=== PATIENT | female | born 1950 | race African-American/Black ===

== ENCOUNTER 2017-04-05 12:10 | Inpatient (IN) | payer OTHER, MEDICAID ==
[~2017-04-05] VITALS: Ht 154.9 cm; Wt 68.0 kg
[~2017-04-05 12:10] MED LIST: FLUT1DIS3 IH; GABA-531 PO; LANTUS; MELO-104 PO; METF10002 PO; MONT10TA24 PO; OMEP40CA34 PO; OXYB5TAB11 PO; PRAV40TA58 PO; PROAIR; RANI300C8 PO; SULF-165 PO; VIC PO
[2017-04-05 13:15] LABS: BASOPHILS % 0.8 % (0.0-2.0); EOSINOPHILS % 0.7 % (0.0-5.0); HEMATOCRIT. 33.1 % (36.0-48.0); HEMOGLOBIN. 11.8 g/dL (12.0-16.0); LYMPHOCYTES % 31.9 % (20.0-50.0); MEAN CORPUSCULAR VOLUME 87.3 fL (81.0-99.0); MEAN PLATELET VOLUME 7.4 fl (7.4-10.4); MONOCYTES % 6.7 % (2.0-8.0); NEUTROPHILS % 59.9 % (40.0-76.0); PLATELET 383 x1000/uL (130-400); RED BLOOD CELL COUNT 3.79 mill/uL (4.2-5.4); RED CELL DISTRIBUTION WIDTH 14.6 % (11.6-14.6)
[2017-04-05 13:20] LABS: INR 0.9; PROTHROMBIN TIME 9.8 sec (9.4-11.6)
[2017-04-05 13:21] LABS: CARBON DIOXIDE 26 mEq/L (21-32); CHLORIDE 109 mEq/L (98-107)
[2017-04-05 13:29] LABS: TROPONIN I < 0.02 ng/mL (0.00-0.04)
[2017-04-05] MEDS ORDERED: ASPIRIN 325MG EC TABLET PO ONE (14:15)
[2017-04-05] MEDS ORDERED: IPRATROPIUM/ALBUTEROL 0.5-3(2.5)MG/3ML NEB INH PRN (15:00)
[2017-04-05] MEDS ORDERED: DIPHENHYDRAMINE 50MG/ML VIAL IV PRN (15:00)
[2017-04-05] MEDS ORDERED: ACETAMINOPHEN 325MG TABLET PO PRN (15:00)
[2017-04-05] MEDS ORDERED: DEXTROSE 50% WATER 50ML SYRINGE IV PRN (15:00)
[2017-04-05] MEDS ORDERED: ONDANSETRON HCL 4MG/2ML VIAL IV PRN (15:00)
[2017-04-05 17:00] VITALS: BP 170/63
[2017-04-05] MEDS: INSULIN LISPRO 100 UNITS/ML SUBCUT SCH ×2 (17:40→22:02)
[2017-04-05] MEDS: BLOOD SUGAR DIAGNOSTIC STRIP TEST SCH ×2 (18:06→21:00)
[2017-04-05 18:07] VITALS: BP 170/63
[2017-04-05] MEDS ORDERED: [UNRECOGNIZED DRUG - OTHER] (18:57)
[2017-04-05] MEDS ORDERED: LOSARTAN (18:57)
[2017-04-05] MEDS ORDERED: LIP40 PO (18:58)
[2017-04-05] MEDS ORDERED: SPIR25TA4 PO (18:59)
[2017-04-05] MEDS ORDERED: DILT240C92 PO (19:00)
[2017-04-05] MEDS ORDERED: OXYB5TAB11 PO (19:01)
[2017-04-05] MEDS: CLONIDINE 0.1MG TABLET PO PRN (19:32)
[2017-04-05] MEDS: HYDROCODONE/ACETAMINOPHEN 5/325MG TABLET PO PRN (19:52)
[2017-04-05 20:00] VITALS: BP 155/74
[2017-04-06] VITALS (7 sets, daily range): BP systolic 133–169; BP diastolic 53–66
[2017-04-06] MEDS: INSULIN LISPRO 100 UNITS/ML SUBCUT SCH ×4 (06:36→21:00)
[2017-04-06] MEDS: BLOOD SUGAR DIAGNOSTIC STRIP TEST SCH ×4 (06:36→20:25)
[2017-04-06 06:56] LABS: BASOPHILS % 0.6 % (0.0-2.0); EOSINOPHILS % 1.1 % (0.0-5.0); HEMATOCRIT. 31.8 % (36.0-48.0); LYMPHOCYTES % 41.7 % (20.0-50.0); MEAN CORPUSCULAR HEMOGLOBIN 31.4 pg (28.0-32.0); MEAN CORPUSCULAR VOLUME 91.3 fL (81.0-99.0); MEAN PLATELET VOLUME 8.1 fl (7.4-10.4); MONOCYTES % 6.7 % (2.0-8.0); NEUTROPHILS % 49.9 % (40.0-76.0); PLATELET 342 x1000/uL (130-400); RED BLOOD CELL COUNT 3.49 mill/uL (4.2-5.4); RED CELL DISTRIBUTION WIDTH 15.1 % (11.6-14.6)
[2017-04-06 08:09] LABS: CARBON DIOXIDE 22 mEq/L (21-32); CHLORIDE 110 mEq/L (98-107); HDL CHOLESTEROL 55 mg/dL (40-59); LDL CHOLESTEROL 117 mg/dL (5-100); TROPONIN I < 0.02 ng/mL (0.00-0.04)
[2017-04-06] MEDS: HYDROCODONE/ACETAMINOPHEN 5/325MG TABLET PO PRN ×2 (09:45→20:56)
[2017-04-06 10:47] LABS: T4 FREE 0.88 ng/dL (0.76-1.46)
[2017-04-06] MEDS: CLOPIDOGREL 75MG TABLET PO SCH (11:00)
[2017-04-06 11:20] LABS: FOLIC ACID (FOLATE) SERUM 19.2 ng/mL (>5.38)
[2017-04-06 18:08] LABS: CLARITY URINE CLEAR (CLEAR); COLOR URINE YELLOW (YELLOW); GLUCOSE URINE TRACE (NEGATIVE); KETONES URINE NEGATIVE (NEGATIVE); LEUKOCYTE ESTERASE URINE NEGATIVE (NEGATIVE); NITRITE URINE NEGATIVE (NEGATIVE); OCCULT BLOOD URINE NEGATIVE (NEGATIVE); PH URINE 6.5 (4.5-8.0); PROTEIN URINE 2+ (NEGATIVE); SPECIFIC GRAVITY URINE 1.009 (1.005-1.030)
[2017-04-06 18:22] LABS: *AMPHETAMINES SCREEN URINE NEGATIVE (NEGATIVE); *BARBITURATES SCREEN URINE NEGATIVE (NEGATIVE); *BENZODIAZEPINES SCREEN URINE NEGATIVE (NEGATIVE); *COCAINE SCREEN URINE NEGATIVE (NEGATIVE); CANNABINOID URINE SCREEN NEGATIVE (NEGATIVE); METHADONE URINE SCREEN NEGATIVE (NEGATIVE); OPIATES URINE SCREEN PRESUMTIVE POSITIVE (NEGATIVE); PHENCYCLIDINE URINE SCREEN NEGATIVE (NEGATIVE)
[2017-04-06] MEDS ORDERED: LORAZEPAM 0.5MG TABLET PO NR (19:30)
[2017-04-06] MEDS: CLONIDINE 0.1MG TABLET PO PRN (20:56)
[2017-04-07 04:00] VITALS: BP 139/66
[2017-04-07] MEDS: BLOOD SUGAR DIAGNOSTIC STRIP TEST SCH ×2 (06:11→11:21)
[2017-04-07] MEDS: INSULIN LISPRO 100 UNITS/ML SUBCUT SCH ×2 (06:48→11:49)
[2017-04-07 07:01] LABS: BASOPHILS % 0.8 % (0.0-2.0); EOSINOPHILS % 1.2 % (0.0-5.0); HEMATOCRIT. 31.8 % (36.0-48.0); LYMPHOCYTES % 43.5 % (20.0-50.0); MEAN CORPUSCULAR HEMOGLOBIN 30.7 pg (28.0-32.0); MEAN CORPUSCULAR VOLUME 88.4 fL (81.0-99.0); MEAN PLATELET VOLUME 8.2 fl (7.4-10.4); MONOCYTES % 7.5 % (2.0-8.0); PLATELET 327 x1000/uL (130-400); RED CELL DISTRIBUTION WIDTH 14.5 % (11.6-14.6)
[2017-04-07 07:40] LABS: CARBON DIOXIDE 23 mEq/L (21-32); CHLORIDE 109 mEq/L (98-107)
[2017-04-07 08:00] VITALS: BP 154/84
[2017-04-07] MEDS: CLOPIDOGREL 75MG TABLET PO SCH (08:18)
[2017-04-07 12:00] VITALS: BP 107/53
[2017-04-07] MEDS ORDERED: NIFEDIPINE XL 30MG TAB PO SCH (12:04)
[2017-04-07] MEDS ORDERED: BUDESONIDE 0.5MG/2ML NEB HHN SCH (16:30)
== END 2017-04-07 15:40 | disposition left against medical advice (07) | DRG 65 ==
LOC: ER 13:25 → 8WST 14:40 → EDBEDREQTM 14:46 → EDBEDREQ 14:46 → ENRESERV 15:34
PROVIDERS: ADMIT Internal Medicine; ATTEND Internal Medicine
DX: I63.9 Cerebral infarction, unspecified (principal); G81.94 Hemiplegia, unspecified affecting left nondominant side; E11.42 Type 2 diabetes mellitus with diabetic polyneuropathy; I11.9 Hypertensive heart disease without heart failure; I10 Essential (primary) hypertension; I27.2 Other secondary pulmonary hypertension; R47.81 Slurred speech; E78.00 Pure hypercholesterolemia, unspecified; M79.7 Fibromyalgia; J44.9 Chronic obstructive pulmonary disease, unspecified; R29.810 Facial weakness; F41.9 Anxiety disorder, unspecified; E78.5 Hyperlipidemia, unspecified; Z53.21 Procedure and treatment not carried out due to patient leaving prior to being seen by health care provider; F17.210 Nicotine dependence, cigarettes, uncomplicated; Z90.710 Acquired absence of both cervix and uterus; Z88.1 Allergy status to other antibiotic agents; Z88.6 Allergy status to analgesic agent; Z79.84 Long term (current) use of oral hypoglycemic drugs; Z79.4 Long term (current) use of insulin; Z79.899 Other long term (current) drug therapy; I51.7 Cardiomegaly; E11.65 Type 2 diabetes mellitus with hyperglycemia; D64.9 Anemia, unspecified
CPT/HCPCS: 36415; 70450; 70544; 70553; 71010; 80048; 80053; 80061; 80305; 81001; 82607; 82746; 82962; 83036; 83880; 84439; 84443; 84481; 84484; 85025; 85610; 87040; 87086; 92523; 92610; 93005; 93306; 93880; 94664; 97162; 97166; 99285; G0482; J1815; J7620

== ENCOUNTER 2017-06-05 15:21 | Emergency (ER) | payer OTHER ==
[~2017-06-05] VITALS: Ht 154.9 cm; Wt 68.0 kg
[~2017-06-05 15:21] MED LIST changes: +DILT240C92 PO; +LIP40 PO; +LOSARTAN; +SPIR25TA4 PO; +[UNRECOGNIZED DRUG - OTHER]
[2017-06-05 15:37] VITALS: BP 106/61
== END 2017-06-05 18:01 | disposition home or self-care (01) ==
LOC: ER 15:52
DX: S82.852A Displaced trimalleolar fracture of left lower leg, initial encounter for closed fracture (principal); E78.00 Pure hypercholesterolemia, unspecified; E11.9 Type 2 diabetes mellitus without complications; Z88.0 Allergy status to penicillin; Z88.5 Allergy status to narcotic agent; Z79.4 Long term (current) use of insulin; W06.XXXA Fall from bed, initial encounter; Y93.89 Activity, other specified; Y92.89 Other specified places as the place of occurrence of the external cause; Y99.8 Other external cause status
CPT/HCPCS: 29505; 73610; 99284

== ENCOUNTER 2019-06-30 00:37 | Emergency (ER) | payer MEDICARE, MEDICAID ==
[~2019-06-30] VITALS: Ht 154.9 cm; Wt 68.0 kg
[~2019-06-30 00:37] MED LIST changes: -FLUT1DIS3 IH; +METF-416 PO; -METF10002 PO; -SPIR25TA4 PO; +SPIR25TA6 PO; -VIC PO
[2019-06-30] MEDS ORDERED: DEXT 10% WATER 1,000 ML IV ONE (02:53)
[2019-06-30 03:36] LABS: BASOPHILS % 0.4 % (0.0-2.0); EOSINOPHILS % 0.1 % (0.0-5.0); HEMOGLOBIN. 12.9 g/dL (12.0-16.0); LYMPHOCYTES % 14.8 % (20.0-50.0); MEAN CORPUSCULAR HEMOGLOBIN 31.4 pg (28.0-32.0); MEAN CORPUSCULAR VOLUME 91.9 fL (81.0-99.0); MEAN PLATELET VOLUME 7.9 fl (7.4-10.4); MONOCYTES % 5.9 % (2.0-8.0); NEUTROPHILS % 78.8 % (40.0-76.0); PLATELET 368 x1000/uL (130-400); RED BLOOD CELL COUNT 4.13 mill/uL (4.2-5.4); RED CELL DISTRIBUTION WIDTH 16.4 % (11.6-14.6)
[2019-06-30 04:04] LABS: CHLORIDE 110 mEq/L (98-107)
[2019-06-30] MEDS ORDERED: ACETAMINOPHEN 325MG TABLET PO PRN (07:15)
[2019-06-30] MEDS ORDERED: ONDANSETRON HCL 4MG/2ML INJ IV PRN (07:15)
[2019-06-30] MEDS ORDERED: DIPHENHYDRAMINE 50MG/ML VIAL IV PRN (07:15)
[2019-06-30 07:37] LABS: PHOSPHORUS 3.3 mg/dL (2.5-4.9)
[2019-06-30] MEDS ORDERED: ENOXAPARIN 40MG/0.4ML SYR SUBCUT SCH (09:00)
[2019-06-30 11:28] VITALS: BP 117/67
== END 2019-06-30 12:23 | disposition left against medical advice (07) ==
LOC: ER 00:37 → EDBEDREQ 06:34 → EDBEDREQTM 06:34 → CANBEDREQ 12:01 → ER 12:23
DX: T38.3X1A Poisoning by insulin and oral hypoglycemic [antidiabetic] drugs, accidental (unintentional), initial encounter (principal); E11.649 Type 2 diabetes mellitus with hypoglycemia without coma; J44.9 Chronic obstructive pulmonary disease, unspecified; E78.00 Pure hypercholesterolemia, unspecified; I10 Essential (primary) hypertension; F17.210 Nicotine dependence, cigarettes, uncomplicated; Z79.4 Long term (current) use of insulin; Z98.42 Cataract extraction status, left eye; Z88.0 Allergy status to penicillin; Z88.5 Allergy status to narcotic agent; Z90.710 Acquired absence of both cervix and uterus; Y92.018 Other place in single-family (private) house as the place of occurrence of the external cause
CPT/HCPCS: 36415; 80048; 82962; 83735; 84100; 85025; 93005; 93970; 96372; 96374; 99284; J1650; J2405